=== PATIENT | male | born 1975 | race Caucasian/White ===

== ENCOUNTER 2022-09-10 05:58 | Observation (INO) ==
--- NOTE | 2022-09-04 09:08 | Anesthesiology Consultation ---
Date of Service September 04, 2022 Assessment & Plan (1) Encounter for pre-operative examination: Chart Review Chart Review: Acceptable Risk for Surgery and Patient NOT seen in Pre Admission Testing -COVID screening: Per PAT nursing assessment on 09/04/22. No known COVID-19 positive contacts or current COVID-19 related symptoms. Travel screen negative. Patient vaccinated for Covid. At surgeon discretion if preop Covid testing being done. History Surgery Operation Date: 09/10/22 07:30 Proposed Procedures p Robotic Laparoscopic Assisted Partial Nephrectomy - Live Loredo MD Height/Weight Height: 5 ft 11 in Weight: 92.986 kg Allergies Allergy/AdvReac Type Severity Reaction Status Date / Time Penicillins Allergy Severe Verified 09/04/22 08:13 Medications Home Medications Medication Instructions Recorded Confirmed Last Taken cetirizine 10 mg tablet (Zyrtec) 10 mg PO DAILY PRN allergies 09/04/22 09/04/22 Unknown fluticasone propionate 50 2 spray intranasal HS 09/04/22 09/04/22 Unknown mcg/actuation nasal spray,suspension Past Medical History Medical History History of COVID-19 01/2022, home test, not hosp; congestion, fever, body aches, cough>resolved. Hx of seasonal allergies Renal mass RT. Sleep apnea mild-no device Past Family History Family History Grandmother Diabetes Mother Hypertension Father Hypertension Heart disease Past Surgical History Surgical History History of open reduction and internal fixation (ORIF) procedure rt hand Social History Smoking Status: Never smoker Do You Dip or Chew Tobacco: No Hx Alcohol Use: Yes alcohol intake frequency: holidays/special occasions only Hx Substance Use: No substance use type: does not use Testing Laboratory Results 08/23/22= WBC: 6.80 H/H: 15.4/47 PLATELETS: 328 SODIUM: 140 POTASSIUM: 4.7 CHLORIDE: 106 CO2: 26 BUN: 15 CREATININE: 1.24 GLUCOSE: 88 URINE CULTURE: No growth Chest X-Ray Date: 08/23/22 Findings: + NAD
[2022-09-10] MEDS ORDERED: LR 15ML/HR IV SCH (06:00)
--- NOTE | 2022-09-10 06:41 | History & Physical Report ---
Date of Service September 10, 2022 Assessment & Plan (1) Right renal mass: Plan 47 yo M with a 2.1cm right renal mass -To OR for robotic lap right partial nephrectomy with myself and Dr. Loredo History of Present Illness Primary Care Provider: Arlen Amezquita DO 46-year-old male referred to me for incidental findings of a 2.1 cm enhancing right lower pole renal mass. I independently reviewed an abdominal MRI with and without contrast from 06/25/2022 which shows an enhancing 2.1 cm right lower pole anterior mass. There are multiple hepatic cysts seen as well. He is otherwise quite healthy. He has not had any previous abdominal surgeries. No smoking history. No family history of renal cell carcinoma. Allergies Allergy/AdvReac Type Severity Reaction Status Date / Time Penicillins Allergy Severe Verified 09/10/22 06:24 Home Medications Medication Instructions Recorded Confirmed Type cetirizine 10 mg tablet (Zyrtec) 10 mg PO DAILY PRN allergies 09/04/22 09/10/22 History fluticasone propionate 50 2 spray intranasal HS 09/04/22 09/10/22 History mcg/actuation nasal spray,suspension Past Med/Surg History Medical History History of COVID-19 01/2022, home test, not hosp; congestion, fever, body aches, cough>resolved. Hx of seasonal allergies Renal mass RT. Sleep apnea mild-no device Surgical History History of open reduction and internal fixation (ORIF) procedure rt hand Family History Grandmother Diabetes Mother Hypertension Father Hypertension Heart disease Social History (Updated 08/02/22 @ 13:10 by KERRY Callaway) Smoking Status: Never smoker Second Hand Exposure: No; Do You Dip or Chew Tobacco: No; Tobacco Cessation Education Requested by Patient: No Hx Alcohol Use: Yes Hx Substance Use: No Preferred Language: Maltese Communication Ability: Effective Power Shear Operator Required: No Beliefs That Will Affect Care: None marital status: Current Living Situation: Spouse and Family current occupational status: employed Other Information That Helps Us Care for You: No Feels Safe at Home: Yes Safety Concerns: Feels Safe At This Time Assistive Devices: Glasses Assistive Devices Comment: reading glasses Review of Systems 14 point review of systems negative outside of what is listed above in HPI Physical Exam Physical Exam: General: Alert and oriented, no acute distress HEENT: Normocephalic, mucous membranes moist Pulmonary: Nonlabored respirations Abdomen: Nondistended Extremities: Moves all 4 spontaneously Neuro: No gross deficits Skin: Warm, dry, no rashes noted
[2022-09-10] MEDS ORDERED: ePHEDrine sulfate 50 MG/ML AMP IV PRN (07:08)
[2022-09-10] MEDS ORDERED: HYDROmorphone INJ 2 MG/ML SYR/VIAL IV PRN (07:08)
[2022-09-10] MEDS ORDERED: ONDANSETRON INJ 2 MG/ML 2 ML VIAL IV PRN ×2 (07:08→11:36)
[2022-09-10] MEDS ORDERED: PROMETHAZINE HCL 12.5 MG in SODIUM CHLORIDE 0.9% 50 ML IV PRN (07:08)
[2022-09-10] MEDS ORDERED: ATROPINE SULFATE 0.1 MG/ML 10ML SYR IV PRN (07:08)
[2022-09-10] MEDS ORDERED: MIDAZOLAM HCL 1 MG/ML 2ML VIAL ONE (07:11)
[2022-09-10] MEDS ORDERED: fentaNYL citrate PF 100 MCG/2 ML VIAL ONE ×2 (07:11→09:47)
[2022-09-10] MEDS ORDERED: ROCURONIUM BROMIDE 10 MG/ML 5 ML VIAL IV ONE ×4 (07:11→09:56)
[2022-09-10] MEDS ORDERED: PROPOFOL IV EMULSION 10 MG/ML 20 ML VIAL IV ONE (07:11)
[2022-09-10] MEDS ORDERED: LIDOCAINE 2% 2 ML VIAL/AMP(20MG/ML) INFIL ONE (07:11)
[2022-09-10] MEDS ORDERED: ceFAZolin 2,000 MG/15 ML IV PUSH IV ONE (07:17)
--- NOTE | 2022-09-10 07:21 | History & Physical Bridge Note ---
Date of Service September 10, 2022 History & Physical Bridge Note I have examined the patient, reviewed the History & Physical and in the interval since the performance of the History & Physical I have noted the following changes of clinical significance: no changes noted
[2022-09-10] MEDS ORDERED: BUPIVACAINE 0.5 % 5 MG/1 ML MPF 30ML VIAL ONE (07:36)
[2022-09-10] MEDS ORDERED: ePHEDrine sulfate 50 MG/ML AMP ONE (08:47)
[2022-09-10] MEDS ORDERED: DEXAMETHASONE SOD INJ 4 MG/ML VIAL ONE (08:47)
[2022-09-10] MEDS ORDERED: SUGAMMADEX SODIUM 200 MG/2 ML VIAL IV ONE (09:45)
[2022-09-10] MEDS ORDERED: ONDANSETRON INJ 2 MG/ML 2 ML VIAL ONE (09:55)
[2022-09-10] MEDS: fentaNYL citrate PF 100 MCG/2 ML VIAL IV PRN ×2 (10:33→10:38)
[2022-09-10 11:13] LABS: Basophils # (auto) 0.05 K/uL (0-0.2); Basophils % (auto) 0.4 %; Eosinophils # (auto) 0.02 K/uL (0-0.50); Eosinophils % (auto) 0.2 %; Hematocrit (blood only) 45.2 % (42.0-52.0); Hemoglobin 14.9 g/dl (14.0-18.0); Immature Granulocytes # (auto) 0.05 K/uL (0.01-0.20); Immature Granulocytes % (auto) 0.4 %; Lymphocytes # (auto) 1.28 K/uL (1.2-3.4); Lymphocytes % (auto) 11.5 %; Mean Corpuscular Hemoglobin 29.2 pg (25.0-34.0); Mean Corpuscular Volume 88.6 fL (80.0-100.0); Mean Platelet Volume 9.2 fL (9.4-12.4); Monocytes # (auto) 0.29 K/uL (0.11-0.59); Monocytes % (auto) 2.6 %; Neutrophils # (auto) 9.44 K/uL (1.40-6.50); Neutrophils % (auto) 84.9 %; Platelet Count 272 K/uL (130-400); RDW Coefficient of Variation 13.6 % (11.5-14.5); RDW Standard Deviation 44.1 fL (36.4-46.3); White Blood Count 11.13 K/ul (4.8-10.8)
[2022-09-10 11:27] LABS: BUN Creatinine Ratio 12.3 (10-20); Calcium 9.3 mg/dl (8.5-10.1); Creatinine Clr Calc Pharmacy 88.4 ml/min; Est GFR (African American) 82.5 ml/min; Est GFR (Non-African American) 71.2 ml/min; Potassium 4.5 mmol/L (3.5-5.1)
[2022-09-10] MEDS ORDERED: oxyCODONE HCL IR 5 MG TAB (IMMEDIATE RELEASE) PO PRN (11:36)
[2022-09-10] MEDS ORDERED: MoRPHine SULFATE 4 MG/ML 1 ML CARP\\VIAL IV PRN (11:36)
[2022-09-10] MEDS ORDERED: CETIRIZINE HCL 10 MG TABLET PO PRN (11:36)
[2022-09-10] MEDS ORDERED: ACETAMINOPHEN 325 MG TAB PO PRN (11:36)
[2022-09-10] MEDS ORDERED: MoRPHine SULFATE 2 MG/ML CARP IV PRN (11:36)
--- NOTE | 2022-09-10 11:38 | Anesthesiology Progress Note ---
Date of Service September 10, 2022 Anesthesia Post Procedure Vital Signs Vital Signs: Temp Pulse Pulse Resp BP Pulse Ox O2 Del Method 09/10/22 11:20 83 12 142/83 H 100 Nasal Cannula 09/10/22 11:05 89 12 138/85 100 Nasal Cannula 09/10/22 10:55 36.2 C L 81 16 133/85 100 Nasal Cannula 09/10/22 10:45 72 12 134/74 98 Nasal Cannula 09/10/22 10:35 75 12 150/95 H 100 Nasal Cannula 09/10/22 10:25 85 11 L 149/87 H 100 Nasal Cannula 09/10/22 10:19 36.0 C L 101 H 18 152/94 H 100 Nasal Cannula 09/10/22 06:26 36.5 C 63 20 148/81 H 98 Room Air O2 Flow Rate 09/10/22 11:20 3 09/10/22 11:05 3 09/10/22 10:55 3 09/10/22 10:45 3 09/10/22 10:35 3 09/10/22 10:25 3 09/10/22 10:19 3 09/10/22 06:26 Pain Intensity Right Abdomen: Pain Intensity: 2 Transfer of Care Handoff Completed per policy Notes Mental Status: alert / awake / arousable and participated in evaluation Patient Amnestic to Procedure: Yes Nausea / Vomiting: adequately controlled Pain: adequately controlled Airway Patency, RR, SpO2: stable & adequate BP & HR: stable & adequate Hydration State: stable & adequate Anesthetic Complications: no major complications apparent
[2022-09-10] MEDS: LACTATED RINGER'S 1,000 ML IV SCH ×2 (11:49→20:57)
--- NOTE | 2022-09-10 12:26 | Operative Report ---
PG Post Operative Report Pre & Post Diagnosis Operation Date: 09/10/22 07:30 Pre-Op Diagnosis: Right Renal Mass Post-Op Diagnosis: Right Renal Mass I identified the patient and participated in the time-out.: Yes Procedure Operation Date: 09/10/22 07:30 Actual Procedures p Robotic Laparoscopic Assisted Partial Nephrectomy - Live Loredo MD Surgeon Live Loredo MD Typo Machine Operator Neville Olivarez; Karly Oshea Estimated Blood Loss 50 Findings Consistent with Post-Op Diagnosis Specimens 1. Right renal mass Description of Procedure Patient was identified in the preoperative holding area appropriate informed consents reviewed and completed. He was transported the operating suite and placed in supine position where general anesthesia was achieved. He was then positioned again into a right lateral decubitus position and the bed was padded and braced in appropriate fashion. Imaging was pulled up on the operative monitors and the case initiated by passing a Veress needle into the right upper quadrant. Following insufflation tentative port sites were marked in a linear fashion just lateral to the rectus border. One of the sites was used to enter with a 5 mm 0 degree lens and robotic Visiport. Inspection revealed a healthy- appearing hemiabdomen without any adhesions. The remainder of the ports were p laced under direct vision. 4 robotic ports were placed followed by 2 chemical laboratory assistant ports along the midline, one just in the infraumbilical space and the other approximately 8 cm superior to the umbilicus. These were both 12 mm ports. The robot was docked. I began by incising the white line of Toldt and medializing the colon. Of note, as I dissected the colon off of the lower pole of the kidney the underlying mass was immediately apparent. There was a very attenuated Gerota's fascia between the mass and the posterior aspect of the colon. Care was used to avoid encroachment or invasion into this mass. Just behind the colon I was able to identify the duodenum and kocherized it. This exposed the gonadal vein inferior to the kidney and the ureter was also identified. I created a window lateral to the gonadal and medial to the ureter and dissected onto the psoas muscle. I was able to use this window and my fourth arm of the robot to elevate the kidney and placed the hilar structures on stretch. We able to dissect to the inferior border of the renal artery which was just inferior to the renal vein. Dissected circumferentially around the artery as well as the vein. Following completion of the hilar dissection, I turned my attention back to the renal mass The anterior surface of this was quite visible already but I was able to expose healthy appearing renal parenchyma circumferentially around the mass. At the superior medial most aspect of the mass there was relatively close proximity to a branch of the renal artery but I felt that there was adequate space to be able to resect without compromising this vessel. At that time we prepositioned a renal reconstruction stitch into the hemiabdomen. We then took a brief timeout before placing bulldog clamps across the vessels. I placed a short curved bulldog across the artery and first attempted to place a long straight across the vein but I felt that this was not offering the benefit I had hoped and we in turn elected to leave only an arterial clamp in place. Time was marked. I then began to resect the mass with care to avoid injury to the adjacent vessels. The mass was entirely removed and there appeared to be no violation of the mass. It was passed out of the immediate [id number] before reconstructing the kidney. Utilizing the previously placed stitch a sliding clip technique was used to close the defect. 2 passes across the defect was sufficient for closure. I then unclamped the renal artery saw good perfusion of the kidney and no active bleeding from the defect. Warm ischemia time was 6 minutes and 40 seconds. The mass was collected in an Endo Catch bag. Floseal was placed over the renal defect. Gerota's fascia was quite thin in this area but was reconstructed to partially cover the dissection. The colon was pushed back into the lateral aspect of the dissection. A NATY drain was guided in through one of the robotic ports. The infraumbilical incision was expanded to allow extraction of the renal mass. This fascia was closed with 0 PDS in [id number] fashion. The 12 mm supraumbilical port was partially closed using 0 Vicryl. All skin incisions were infiltrated with half percent Marcaine and closed with 4-0 Monocryl. The NATY drain was sutured in place with 2-0 nylon. The case was subsequently concluded. He was reversed of anesthesia and taken to the recovery room in stable condition. There were no complications. Dr. Neville Olivarez and Karly Oshea assisted from incision to closure and throughout the entire case. I attest to the content of the Intraoperative Record and any orders documented therein. Any exceptions are noted below.
[2022-09-10] MEDS: oxyCODONE HCL IR 5 MG TAB (IMMEDIATE RELEASE) PO PRN ×3 (12:53→23:48)
[2022-09-10] MEDS: ceFAZolin 2000MG 2,000 MG/15 ML SYR IV SCH ×2 (16:05→23:49)
[2022-09-10] MEDS: ALLERGY Noted to ORDERED Medication: Cefazolin SCH ×4 (19:13→19:16)
[2022-09-10] MEDS: DOCUSATE SODIUM 100 MG CAP PO SCH (19:46)
[2022-09-10] MEDS ORDERED: FLUTICASONE PROPIONATE NA SPR 16 GM BTL SCH (21:00)
[2022-09-11] MEDS: LACTATED RINGER'S 1,000 ML IV SCH (07:05)
[2022-09-11] MEDS: DOCUSATE SODIUM 100 MG CAP PO SCH (07:37)
--- NOTE | 2022-09-11 08:01 | Urology Progress Note ---
Date of Service September 11, 2022 Assessment & Plan (1) Right renal mass: Plan: Postop day #1 status post right robotic partial nephrectomy Did extremely well during surgery yesterday Feels well this morning Awaiting labs but I do not anticipate drastic changes in hemoglobin or creatinine Bose out this morning NATY out later today or prior to discharge If he feels well later he potentially could be discharged today Admission and Anticipated Discharge Date Admission Date: September 10, 2022 Subjective No major issues overnight Ambulated Pain is modest Urine draining well through the Bose Tolerating diet Physical Exam Physical Exam: Abdomen soft, incisions appropriate, NATY with scant output, clear urine Results & Data Vital Signs (Past 12 Hours) Vital Signs Temp Pulse Resp BP Pulse Ox O2 Del Method 09/11/22 04:10 37 C 77 16 122/71 95 Room Air 09/11/22 00:06 37 C 66 18 125/72 98 Room Air PG Care Time/CCT Total # of Minutes Spent Total Time Spent with Patient: Total time spent is greater than 50% in coordination of care (as documented) at patient's floor/unit and/or counseling patient: Coding Level of Care Code None Diagnoses Right renal mass N28.89
[2022-09-11 08:23] LABS: Basophils # (auto) 0.01 K/uL (0-0.2); Basophils % (auto) 0.1 %; Eosinophils # (auto) 0.02 K/uL (0-0.50); Eosinophils % (auto) 0.2 %; Hematocrit (blood only) 39.7 % (42.0-52.0); Hemoglobin 13.2 g/dl (14.0-18.0); Immature Granulocytes # (auto) 0.04 K/uL (0.01-0.20); Immature Granulocytes % (auto) 0.3 %; Lymphocytes % (auto) 17.7 %; Mean Corpuscular Hemoglobin 29.1 pg (25.0-34.0); Mean Corpuscular Hgb Conc 33.2 g/dL (32.0-36.0); Mean Corpuscular Volume 87.6 fL (80.0-100.0); Mean Platelet Volume 9.3 fL (9.4-12.4); Monocytes # (auto) 1.57 K/uL (0.11-0.59); Monocytes % (auto) 12.6 %; Neutrophils # (auto) 8.59 K/uL (1.40-6.50); Neutrophils % (auto) 69.1 %; Platelet Count 269 K/uL (130-400); RDW Coefficient of Variation 14.1 % (11.5-14.5); RDW Standard Deviation 45.2 fL (36.4-46.3); Red Blood Count 4.53 M/uL (4.70-6.10); White Blood Count 12.43 K/ul (4.8-10.8)
[2022-09-11 08:32] LABS: BUN Creatinine Ratio 12.4 (10-20); Calcium 8.8 mg/dl (8.5-10.1); Creatinine Clr Calc Pharmacy 102.7 ml/min; Est GFR (African American) 98.9 ml/min; Est GFR (Non-African American) 85.3 ml/min; Potassium 4.3 mmol/L (3.5-5.1)
--- NOTE | 2022-09-11 09:28 | Discharge Summary ---
Date of Service September 11, 2022 Admission HPI Per Admitting Provider 46-year-old male referred to me for incidental findings of a 2.1 cm enhancing right lower pole renal mass. I independently reviewed an abdominal MRI with and without contrast from 06/25/2022 which shows an enhancing 2.1 cm right lower pole anterior mass. There are multiple hepatic cysts seen as well. He is otherwise quite healthy. He has not had any previous abdominal surgeries. No smoking history. No family history of renal cell carcinoma. Admission Exam Per Admitting Provider General: Alert and oriented, no acute distress HEENT: Normocephalic, mucous membranes moist Pulmonary: Nonlabored respirations Abdomen: Nondistended Extremities: Moves all 4 spontaneously Neuro: No gross deficits Skin: Warm, dry, no rashes noted Principal Diagnosis Right renal mass Discharge Exam 14 point review of systems negative outside of what is listed above in HPI Discharge Data Allergies Allergy/AdvReac Type Severity Reaction Status Date / Time Penicillins Allergy Severe Verified 09/10/22 06:24 Procedures Performed Operation Date: 09/10/22 07:30 Actual Procedures p Robotic Laparoscopic Assisted Partial Nephrectomy - Live Loredo MD Hospital Course (1) Right renal mass: Plan Patient underwent procedure noted above on 09/10/2022. Uncomplicated procedure. Transferred to the floor in stable condition. Postoperative labs were stable. Pain was well controlled. Tolerated diet. Ambulated without issue. Bose catheter and NATY drain removed without issue. Deemed stable for discharge home on 09/11/2022. Total Time Total Time Spent Total Time Spent (In Minutes): 10 Discharge Plan Discharge Items Patient Disposition: Home - Self-Care Reason For Visit: Right Renal Mass Discharge Diagnosis: Right renal mass Activity: Per Instructions section Lifting: No more than 10 pounds Bathing Comment: Okay to shower. No tub baths or soaks. Sexual Activity: Wait until after follow-up appointment Exercise/Sports: Wait until after follow-up appointment Driving/Machine Use: Do not drive if taking prescription pain medication. Non-emergency contact: Surgeon and Urologist Call non-emergency contact if: you have any medication questions, your pain is not controlled, your pain is worsening, you have a fever, your wound has increased redness and your wound pain has increased Follow-up/Referrals: Arlen Amezquita DO [Primary Care Provider] - Neville Olivarez MD [Physician] - 09/19/22 10:00 am Diet: Regular Addtl Attending Provider Instructions: Please take all medications as prescribed and keep all follow-ups as scheduled. Please call our office at [phone] with any questions, concerns or need to reschedule appointments for any reason. We are happy to assist you. Recovering at home: We recommend having someone with you for the first few days after surgery to help care for you. It is okay to shower tomorrow. Please avoid swimming, bathing or using hot tub until incisions are well healed. Avoid driving until you are not requiring pain medication any further. Walk at least a few times a day. Increase your distance, as you feel able. Stairs in your home are okay. Please avoid strenuous or sexual activity until your follow-up. We recommend using stool softener (i.e. Colace) to prevent constipation and straining, especially the first two weeks post operatively. Call [facility] at [phone] if you experience: Chest pain or trouble breathing (call 501 or go to the hospital). Fever of 101F or higher Symptoms of infection at incision site, including redness or swelling, warmth, or bad-smelling drainage Pain that is not controlled with medicines Pending Studies at Discharge: Yes (pathology) Stand-Alone Forms: My [facility], Smoking Cessation Medications and DC Order Prescriptions: New oxycodone 5 mg tablet 5 mg PO Q6H PRN (Reason: pain) Qty: 10 0RF Continued cetirizine [Zyrtec] 10 mg Tablet 10 mg PO DAILY PRN (Reason: allergies) fluticasone propionate 50 mcg/actuation spray,suspension 2 spray INTRANASAL HS Discharge Orders: Discharge Order (Routine); Ordered 09/11/22 Ordered By: Karly Oshea Admission Data Admit Date/Time: 09/10/22 10:18 Attending Provider: Live Loredo Admit Provider: Live Loredo Primary Care Provider: Arlen Amezquita Other Interventions: Discharge Summary Assessment (RN) Last Done: 09/11/22 13:45 Coding Level of Care Code 07674 IN/OBS DISCH 30 MIN/LESS Diagnoses Right renal mass N28.89
[2022-09-11] MEDS: oxyCODONE HCL IR 5 MG TAB (IMMEDIATE RELEASE) PO PRN (14:07)
== END 2022-09-11 14:37 | disposition home or self-care (01) ==
LOC: ASU 05:58 → 3W 10:18 → INTOOBSV 10:18
DX: Z20.822 Contact with and (suspected) exposure to COVID-19; Z88.0 Allergy status to penicillin; Z79.899 Other long term (current) drug therapy; C64.1 Malignant neoplasm of right kidney, except renal pelvis